=== PATIENT | male | born 1985 | race Caucasian/White ===

== ENCOUNTER 2016-10-20 13:52 | Emergency (ER) | payer OTHER ==
[~2016-10-20] VITALS: Ht 170.2 cm; Wt 86.2 kg
[~2016-10-20 13:52] MED LIST: EPIPEN 2-P0.3 MG/0.3 IM; FLEXERIL 10MG T10 MG PO; HYDROXYZINE PAM50 M1; MOBIC15 MG PO; PERCOCET 325 MG1 TAB PO; ZOLPIDEM TARTRAT5 M1 PO
[2016-10-20 13:54] VITALS: BP 133/66
--- NOTE | 2016-10-20 14:05 | ED GI/GU/ABDOMINAL COMPLAINT ---
History of Present Illness General Chief Complaint: Abdominal Pain/Flank Pain Stated Complaint: ABD PAIN Source: patient Exam Limitations: no limitations Vital Signs & Intake/Output Vital Signs & Intake/Output Vital Signs Date Time Temp Pulse Resp B/P B/P Pulse O2 O2 Flow FiO2 Mean Ox Delivery Rate 10/20 1358 97 10/20 1354 99.4 58 18 133/66 98 Room Air Allergies Coded Allergies: Penicillins (HIVES 09/14/15) amoxicillin (HIVES 09/14/15) cefaclor (From [facility]) (HIVES 09/14/15) venom-honey bee (ANAPHYLAXIS 10/20/16) tramadol (GI UPSET 09/14/15) Reconcile Medications Dicyclomine Hydrochloride (Bentyl) 10 MG CAPSULE 2 CAP PO TID abd pain Epinephrine (Epipen 2-Andrey) 0.3 MG/0.3 ML AUTO.INJCT 0.3 MG IM AD PRN ALLERGIC REACTIONS (Reported) Ondansetron (Zofran Odt) 4 MG TAB.RAPDIS 1 TAB SL TID nausea Oxycodone HCl 15 MG TABLET 1 TAB PO PRN PAIN (Reported) Promethazine HCl 25 MG TABLET 1 TAB PO Q6P PRN nausea Zolpidem Tartrate 5 MG TABLET 1 TAB PO QPM SLEEP (Reported) Triage Note: PT BIBA FOR C/O ABD PAIN THAT STARTED WEDNESDAY. [facility]. Triage Nurses Notes Reviewed? yes Onset: Abrupt Duration: week(s): (1), constant, continues in ED Timing: recent history Quality/Severity: moderate, sharpness, severe No Modifying Factors: none HPI: 30-year-old male comes into emergency room for further evaluation of lower abdominal pain. Symptoms were going on for the past week. Associated nausea vomiting. Denies any changes in bowel movement. Decreased appetite. Denies any prior abdominal surgeries. He went to [place] to be evaluated but left because he was waiting too long. Patient admits to history of smoking pot and some intermittent Percocet use. Denies any heavy alcohol use. Denies any other associated symptoms. (GETACHEW NYE) Past History Travel History Traveled to [place] past 21 day No Medical History Any Pertinent Medical History? see below for history Neurological: NONE EENT: NONE Cardiovascular: NONE Respiratory: NONE Gastrointestinal: NONE Hepatic: NONE Renal: NONE Musculoskeletal: chronic back pain Psychiatric: NONE Endocrine: NONE Surgical History Surgical History: non-contributory Psychosocial History What is your primary language Slovenian Tobacco Use: Current Daily Use Daily Tobacco Use Amount/Type: => 5 Cigarettes daily ETOH Use: occasional use Illicit Drug Use: marijuana Family History Hx Contributory? No (GETACHEW NYE) Review of Systems Review of Systems Constitutional: Reports: no symptoms. EENTM: Reports: no symptoms. Respiratory: Reports: no symptoms. Cardiovascular: Reports: no symptoms. GI: Reports: see HPI. Genitourinary: Reports: see HPI. Musculoskeletal: Reports: no symptoms. Skin: Reports: no symptoms. Neurological/Psychological: Reports: no symptoms. Hematologic/Endocrine: Reports: no symptoms. Immunologic/Allergic: Reports: no symptoms. All Other Systems: Reviewed and Negative (GETACHEW NYE) Physical Exam Physical Exam General Appearance: well developed/nourished, no apparent distress, alert Head: atraumatic, normal appearance Eyes: Bilateral: normal appearance, EOMI. Ears, Nose, Throat, Mouth: hearing grossly normal, moist mucous membrane Neck: normal inspection Respiratory: no respiratory distress Cardiovascular: regular rate/rhythm Gastrointestinal: soft, tenderness Back: normal inspection Extremities: normal range of motion Neurologic/Psych: awake, alert, oriented x 3, normal gait, normal mood/affect Skin: intact, normal color Core Measures ACS in differential dx? No Severe Sepsis Present: No Septic Shock Present: No (GETACHEW NYE) Progress Differential Diagnosis: AAA, appendicitis, biliary colic, bowel obstruction, colon cancer, cholecystitis, diverticulitis, epididymitis, gastritis, hepatitis, ischemic bowel, inflamm bowel dis, pancreatitis, prostatitis, peptic ulcer, PUD/ GERD, perforated viscous, pyelonephritis, SBO, testicular torsion, ureterolithiasis, urinary retention, urethritis, UTI/pyelo Plan of Care: Orders Procedure Date/time Status URINALYSIS 10/20 1355 Complete LIPASE 10/20 1355 Complete COMPREHENSIVE METABOLIC PANEL 10/20 1355 Complete CBC WITHOUT DIFFERENTIAL 10/20 1355 Complete AMYLASE 10/20 1355 Complete Laboratory Tests 10/20/16 1534: Urinalysis MOD H, Urine Color YEL, Urine Clarity CLEAR, Urine pH 6.5, Ur Specific [place] 1.015, Urine Protein TRACE H, Urine Ketones NEG, Urine Nitrite NEG, Urine Bilirubin NEG, Urine Urobilinogen 1.0, Ur Leukocyte Esterase NEG, Ur Microscopic SEDIMENT EXAMINED, Urine RBC RARE, Ur Epithelial Cells FEW, Urine Bacteria FEW H, Urine Mucus MOD H, Urine Hemoglobin NEG, Urine Glucose NEG 10/20/16 1405: Anion Gap 11, Estimated GFR > 60, BUN/Creatinine Ratio 30.0 H, Glucose 108 H, Calcium 9.1, Total Bilirubin 0.9, AST 17, ALT 35, Alkaline Phosphatase 63, Total Protein 7.3, Albumin 4.3, Globulin 3.0, Albumin/Globulin Ratio 1.4, Amylase 49, Lipase 18 L, CBC w Diff NO MAN DIFF REQ, RBC 4.81, MCV 90.2, MCH 29.9, RDW 13.8 , MPV 9.3, Gran % 81.2 H, Lymphocytes % 13.5 L, Monocytes % 5.1, Eosinophils % 0.1, Basophils % 0.1, Absolute Granulocytes 9.3 H, Absolute Lymphocytes 1.6, Absolute Monocytes 0.6, Absolute Eosinophils 0, Absolute Basophils 0, PUBS MCHC 33.1 Diagnostic Imaging: Viewed by Me: CT Scan. Discussed w/RAD: CT Scan. Radiology Impression: SERVICE DATE: 10/20/16 EXAM TYPE: CAT - CT ABD & PELVIS W IV CONTRAST EXAMINATION: CT ABDOMEN AND PELVIS WITH CONTRAST CLINICAL INFORMATION: Lower abdominal pain. Vomiting. COMPARISON: None TECHNIQUE: Multidetector volumetric imaging was performed of the abdomen and pelvis before and after the IV administration of 95 mL of Optiray 320 intravenous contrast. Sagittal and coronal reformatted images were obtained on the technologist's workstation. DLP: 276 mGy-cm FINDINGS: LUNG BASES: The visualized lung bases are unremarkable. LIVER, GALLBLADDER, AND BILIARY TREE: The liver is normal in size, shape, and attenuation. There is a 1 cm cyst in the left lobe of the liver. Additional smaller hypoattenuating foci are seen throughout the liver. No biliary ductal dilatation is present. The gallbladder is unremarkable with no evidence of radiopaque gallstones, gallbladder wall thickening, or obvious pericholecystic inflammatory changes. PANCREAS: Unremarkable. SPLEEN: Unremarkable. ADRENAL GLANDS: Unremarkable. KIDNEYS AND URETERS: The kidneys are normal in size, shape, and attenuation. No hydronephrosis, hydroureter, or calculi seen. No perinephric stranding. Multiple bilateral renal cysts. Left midpole 1.5 cm lesion measures higher than simple fluid attenuation. Exophytic right lower pole 1.7 cm renal lesion is higher than simple fluid attenuation. Multiple additional smaller hypoattenuating lesions are too small to characterize. BLADDER: Unremarkable. GASTROINTESTINAL TRACT: The stomach and small bowel are unremarkable. No dilated loops of bowel or evidence of obstruction. No colonic wall thickening or inflammatory change. No free air or free fluid. ABDOMINAL WALL: No significant hernia is appreciated. LYMPH NODES: Normal. VASCULAR: Unremarkable. PELVIC VISCERA: The prostate and seminal vesicles are unremarkable. OSSEOUS STRUCTURES: Right L5 pars defect. There is grade 2 anterolisthesis of L5 on S1 with loss of the disc space and prominent endplate sclerosis. IMPRESSION: 1. No acute inflammatory changes of the abdomen or pelvis. 2. Multiple bilateral renal cyst with additional lesions which are too small to characterize. The appearance is suspicious for polycystic kidney disease. Some of the lesions appear hyper attenuating which are nonspecific. Consider nonemergent renal protocol CT to further assess. These could be hemorrhagic or proteinaceous cysts in nature. 3. Additional low-attenuation hepatic lesions, many of which are too small to characterize. The largest represents a cyst. DICTATED BY: KAREN BRYANT MD DATE/TIME DICTATED:1610 TAXATION CONSULTANT:TIMMY DATE/TIME TRANSCRIBED:10/20/161610 Initial ED EKG: none Comments: 10/20/2016 5:54:33 PM No acute findings here in the emergency room. Patient feels better after IV medications. Patient referred to double end tenon operator and primary care doctor. Return if any other concerns worsening symptoms. Understands and agrees with plan of care. (VERN TINAJERO,GETACHEW) Departure Departure Disposition: HOME OR SELF CARE Condition: Stable Clinical Impression Primary Impression: Abdominal pain Referrals: CURTIS BOATENG,GE Grimaldo. (PCP/Family) MARY BOATENG,RICARDA Dickson. Additional Instructions: Follow-up with your primary care doctor. Return if any concerns worsening symptoms. Follow-up with gastric urologist provided. A copy of the CAT scan report has been provided to. Please go over all results of today's visit with your primary care doctor. Contact your primary care doctor to let them know you were here in the emergency room. There may be nonspecific findings which may not be related to your visit today here in the emergency room but may require further evaluation and chronic monitoring by your primary care doctor. If you had a laceration today the chance of foreign body always remains. You should follow-up with your primary care doctor for recheck in 3-5 days for a wound check. If you had an x-ray done there is a chance that a fracture could have been missed on initial read and you should follow-up with your primary care doctor for repeat x-rays if symptoms persist. If your blood pressure was elevated here in the emergency room please have rechecked by her primary care doctor within the next 48 hours by your primary care doctor. If you were prescribed a narcotic here in the emergency room or any type of controlled substances you're not allowed to drive while taking this medication or operate any type of heavy machinery. Narcotics can make you feel lightheaded dizziness nausea and can cause constipation. You may need to pick pulling machine tender a stool softener. Thank you for choosing [facility] emergency room. Please return to the emergency room immediately if you have any other concerns worsening of symptoms. Departure Forms: Customer Survey General Discharge Information Prescriptions: Current Visit Scripts Promethazine HCl 1 TAB PO Q6P PRN nausea #20 TAB Ondansetron (Zofran Odt) 1 TAB SL TID #20 TAB Dicyclomine Hydrochloride (Bentyl) 2 CAP PO TID #40 CAP (GETACHEW NYE) PA/PAINTING AND COATING WORKER Co-Sign Statement Statement: ED Attending supervision documentation- [] I saw and evaluated the patient. I have also reviewed all the pertinent lab results and diagnostic results. I agree with the findings and the plan of care as documented in the PA's/PAINTING AND COATING WORKER's documentation. [X] I have reviewed the ED Record and agree with the PA's/PAINTING AND COATING WORKER's documentation. [] Additions or exceptions (if any) to the PAs/PAINTING AND COATING WORKER's note and plan are summarized below: [] (HOLA BOATENG,BEVERLY)
[2016-10-20 14:17] LABS: ABSOLUTE BASOPHIL COUNT 0 /CUMM (0.0-0.2); ABSOLUTE EOSINOPHIL COUNT 0 /CUMM (0.0-0.7); ABSOLUTE GRANULOCYTE CT 9.3 /CUMM (1.4-6.5); ABSOLUTE LYMPH COUNT 1.6 /CUMM (1.2-3.4); ABSOLUTE MONOCYTE COUNT 0.6 /CUMM (0.10-0.60); BASOPHIL % 0.1 % (0.0-2.0); EOSINOPHIL % 0.1 % (0-5); GRANULOCYTE % 81.2 % (42.2-75.2); HEMATOCRIT 43.4 % (42-52); MEAN CORPUSCULAR HGB 29.9 PG (27.0-31.0); MEAN CORPUSCULAR HGB CONC 33.1 G/DL (33.0-37.0); MEAN CORPUSCULAR VOLUME 90.2 FL (80.0-94.0); MEAN PLATELET VOLUME 9.3 FL (7.4-10.4); PLATELET COUNT 232 /CUMM (130-400); RBC DISTRIBUTION WIDTH 13.8 % (11.5-14.5); RED BLOOD CELL CT 4.81 /CUMM (4.70-6.10); WHITE BLOOD CELL COUNT 11.5 /CUMM (4.8-10.8)
[2016-10-20] MEDS ORDERED: OXYCODONE HCL15 M1 PO (15:55)
--- NOTE | 2016-10-20 16:23 | CT SCAN REPORT ---
EXAMINATION: CT ABDOMEN AND PELVIS WITH CONTRAST CLINICAL INFORMATION: Lower abdominal pain. Vomiting. COMPARISON: None TECHNIQUE: Multidetector volumetric imaging was performed of the abdomen and pelvis before and after the IV administration of 95 mL of Optiray 320 intravenous contrast. Sagittal and coronal reformatted images were obtained on the technologist's workstation. DLP: 276 mGy-cm FINDINGS: LUNG BASES: The visualized lung bases are unremarkable. LIVER, GALLBLADDER, AND BILIARY TREE: The liver is normal in size, shape, and attenuation. There is a 1 cm cyst in the left lobe of the liver. Additional smaller hypoattenuating foci are seen throughout the liver. No biliary ductal dilatation is present. The gallbladder is unremarkable with no evidence of radiopaque gallstones, gallbladder wall thickening, or obvious pericholecystic inflammatory changes. PANCREAS: Unremarkable. SPLEEN: Unremarkable. ADRENAL GLANDS: Unremarkable. KIDNEYS AND URETERS: The kidneys are normal in size, shape, and attenuation. No hydronephrosis, hydroureter, or calculi seen. No perinephric stranding. Multiple bilateral renal cysts. Left midpole 1.5 cm lesion measures higher than simple fluid attenuation. Exophytic right lower pole 1.7 cm renal lesion is higher than simple fluid attenuation. Multiple additional smaller hypoattenuating lesions are too small to characterize. BLADDER: Unremarkable. GASTROINTESTINAL TRACT: The stomach and small bowel are unremarkable. No dilated loops of bowel or evidence of obstruction. No colonic wall thickening or inflammatory change. No free air or free fluid. ABDOMINAL WALL: No significant hernia is appreciated. LYMPH NODES: Normal. VASCULAR: Unremarkable. PELVIC VISCERA: The prostate and seminal vesicles are unremarkable. OSSEOUS STRUCTURES: Right L5 pars defect. There is grade 2 anterolisthesis of L5 on S1 with loss of the disc space and prominent endplate sclerosis. IMPRESSION: 1. No acute inflammatory changes of the abdomen or pelvis. 2. Multiple bilateral renal cyst with additional lesions which are too small to characterize. The appearance is suspicious for polycystic kidney disease. Some of the lesions appear hyper attenuating which are nonspecific. Consider nonemergent renal protocol CT to further assess. These could be hemorrhagic or proteinaceous cysts in nature. 3. Additional low-attenuation hepatic lesions, many of which are too small to characterize. The largest represents a cyst.
[2016-10-20] MEDS ORDERED: BENTYL10 M1 PO (17:08)
[2016-10-20] MEDS ORDERED: ZOFRAN ODT4 M1 SL (17:08)
[2016-10-20] MEDS ORDERED: PROMETHAZINE HC25 M3 PO (17:08)
== END 2016-10-20 17:20 ==
LOC: ERH 13:52
PROVIDERS: Physician Assistant Medical
DX: R10.30 Lower abdominal pain, unspecified (principal)
CPT/HCPCS: 74177; 81001; 96374; 96375; J2405; J2550